=== PATIENT | female | born 1970 | race Caucasian/White ===

== ENCOUNTER 2020-11-20 16:41 | Emergency (ER) | payer OTHER ==
[~2020-11-20] VITALS: Ht 170.2 cm; Wt 81.7 kg
[~2020-11-20 16:41] MED LIST: CALCIUM600 MG PO; HYDROXYZINE HCL25 MG PO; MIRENA1 EACH IY; MULTIVITAMINS1 EAC7 PO
[2020-11-20] MEDS ORDERED: POTASSIUM CHLO20 ME1 PO (18:24)
[2020-11-20] MEDS ORDERED: PRILOSEC2.5 MG PO (18:25)
[2020-11-20] MEDS ORDERED: ISOSORBIDE MONO60 MG PO (18:25)
[2020-11-20] MEDS ORDERED: HYDROCHLOROTHIA50 MG PO (18:25)
[2020-11-20] MEDS ORDERED: MONTELUKAST SOD10 MG PO (18:25)
[2020-11-20] MEDS ORDERED: BAYER CHEWABLE81 MG PO (18:25)
[2020-11-20] MEDS ORDERED: METOPROLOL SUCC25 MG PO (18:26)
== END 2020-11-20 23:00 | disposition home or self-care (01) ==
LOC: ED 16:41
DX: U07.1 COVID-19 (principal); I25.2 Old myocardial infarction; Z87.891 Personal history of nicotine dependence; Z88.0 Allergy status to penicillin; Z91.040 Latex allergy status; Z79.899 Other long term (current) drug therapy; Z79.82 Long term (current) use of aspirin
CPT/HCPCS: 99283-25; C9803; M0243; Q0244; U0003

== ENCOUNTER 2021-10-07 08:20 | Day surgery (SDC) | payer OTHER ==
[~2021-10-07] VITALS: Ht 170.2 cm; Wt 84.1 kg
[~2021-10-07 08:20] MED LIST changes: +BAYER CHEWABLE81 MG PO; +HYDROCHLOROTHIA50 MG PO; +ISOSORBIDE MONO60 MG PO; +METOPROLOL SUCC25 MG PO; +MONTELUKAST SOD10 MG PO; +PEPCID20 MG PO; +POTASSIUM CHLO20 ME1 PO; +PRILOSEC2.5 MG PO
[2021-10-07] MEDS ORDERED: VITAMIN C500 M4 PO (08:44)
[2021-10-07] MEDS ORDERED: PRAVASTATIN SOD20 MG PO (08:44)
[2021-10-07] MEDS ORDERED: VITAMIN D350 MC3 PO (08:45)
[2021-10-07] MEDS ORDERED: VITAMIN B COMP1 EAC1 PO (08:45)
--- NOTE | 2021-10-07 10:34 | NUR ---
10/07/21 1034 [place] 1027 PATIENT ARRIVES TO PACU AWAKE BUT DROWSY. DENIES PAIN OR NAUSEA. PASSING GAS. RESP EVEN AND UNLABORED, NC AT 2 LITERS, TURNED OFF.
--- NOTE | 2021-10-07 13:04 | OR ---
[facility] [address] [place], [place] [address] Signed DATE OF OPERATION: 10/07/2021 SURGEON: Wendy Mckay MD PREOPERATIVE DIAGNOSIS: Episodic diarrhea, prior history of possible diverticulosis. POSTOPERATIVE DIAGNOSIS: Normal-appearing colon. No obvious diverticula currently. PROCEDURE: Total colonoscopy to cecum with biopsy of rectum. ANESTHESIA: Intravenous sedation, propofol infusion; Cristina Cisneros CRNA INDICATIONS: This 51-year-old white woman is a patient of Dr. Pendleton, formally Dr. Medina. She underwent colonoscopy in the past by Dr. Zohaib Orozco with no findings of concern that she knows of, though she was thought to have diverticular changes. She has had no rectal bleeding or constipation but does have diarrhea occasionally. She underwent colonoscopy by Dr. Orozco several years ago. She has no family history of colon cancer that she is aware of. She does have a significant coronary history, having suffered myocardial infarction in 2018, considered related to aortic dissection for which she underwent stent therapy in [place]. She does not currently have angina or exertional chest pain. She is admitted at this time to undergo colonoscopy. She understands the risk of bleeding, infection, and perforation. FINDINGS: The prep was good. Complete colonoscopy was undertaken to the cecum without question. She had no obvious polyps or colitis. I did not see diverticulosis despite prior reported findings of the same. DESCRIPTION OF PROCEDURE: The patient was brought to the endoscopy suite and placed in the lateral decubitus position, given intravenous sedation to the point of slurred speech and nystagmus. Full cardiopulmonary monitoring was undertaken for her propofol infusional sedation approach. Digital rectal examination was normal. An Olympus video colonoscope was passed in the rectum and manipulated throughout the Electronically Signed By: WENDY MCKAY MD 10/07/21 1304 PATIENT NAME: LATANYA WILLIAMSON OPERATIVE REPORT DATE OF : 72 REPORT #: [id number] PHYSICIAN: WENDY MCKAY MD PCP: ROSE ORTIZ PA-C REPORT IS CONFIDENTIAL AND NOT TO BE RELEASED WITHOUT AUTHORIZATION [facility] [address] [place], [place] [address] Signed colon ultimately intubating the cecum itself. The ileocecal valve and appendiceal orifice were normal. Scope was withdrawn and examination throughout showed no sign of polyps or diverticular formation that I could tell and no obvious colitis. Biopsies were obtained of the rectum to assess for occult colitis given episodic diarrhea. The scope was removed and the patient was taken to the recovery room in good condition. CONCLUDING DIAGNOSIS: Normal-appearing colon. PLAN: Recommend repeat colonoscopy in 10 years, sooner if symptoms should warrant. She will return to the ongoing care of Dr. Pendleton. MD WILBERTO Dorantes/MARLEN /[id number] cc: Sathya Pendleton MD Copies: SATHYA PENDLETON MD ~ Electronically Signed By: WENDY MCKAY MD 10/07/21 1304 PATIENT NAME: CLAYLATANYA OPERATIVE REPORT DATE OF : 72 REPORT #: [id number] PHYSICIAN: WENDY MCKAY MD PCP: ROSE ORTIZ PA-C REPORT IS CONFIDENTIAL AND NOT TO BE RELEASED WITHOUT AUTHORIZATION
--- NOTE | 2021-10-07 13:12 | EKG ---
[facility] [address] [facility] [place] [address] Signed Normal sinus rhythm with sinus arrhythmia Low voltage QRS Borderline ECG When compared with ECG of 19-JAN-2018 14:06, Borderline criteria for Inferior infarct are no longer present Confirmed by SATHYA PENDLETON MD ([id number]) on 10/07/2021 1:11:52 PM Electronically Signed By: SATHYA PENDLETON MD 10/07/21 1312 PATIENT NAME: CLAYLATANYA Electrocardiogram DATE OF : 72 PHYSICIAN: SATHYA PENDLETON MD REPORT #: [id number] REPORT IS CONFIDENTIAL AND NOT TO BE RELEASED WITHOUT AUTHORIZATION
--- NOTE | 2021-10-08 14:56 | PATH ---
[facility] [address] [place], [place] [address] Signed SPECIMEN(S): A RECTAL BIOPSY SPECIMEN SOURCE: A. RECTAL BIOPSY CLINICAL HISTORY: Pre: History of diarrhea, history of diverticulosis. Post: Normal colon. Colonoscopy. FINAL PATHOLOGIC DIAGNOSIS: Rectal biopsy: - Hyperplastic polyp (one fragment). JVR:markie:C2NR MICROSCOPIC EXAMINATION: Histologic sections of all submitted blocks are examined by light microscopy. These findings, together with the gross examination, support the pathologic diagnosis. GROSS DESCRIPTION: The specimen, labeled "NN, 1," and designated on the requisition "rectum," is received in formalin and consists of two garza soft tissue fragments that measure 0.2-0.3 cm in greatest dimension. The specimen is entirely submitted in cassette (A1). AT (under the direct supervision of a pathologist) The Gross Description was prepared using a voice recognition system. The report was reviewed for accuracy; however, sound-alike word errors, addition and/or deletions may occur. If there is any question about this report, please contact Client Services. PERFORMING LABORATORY: The technical component was performed by [facility], [address] [place] [address] (CLIA# [id number]). Professional interpretation was performed by [facility], [address] [place] [id number] (CLIA#: [id number]). Diagnostician: Houston Parson MD Pathologist Electronically Signed 10/08/2021 PATIENT NAME: LATANYA WILLIAMSON PATHOLOGY DATE OF : 72 REPORT #: [id number] PHYSICIAN: BREANNE BERMUDEZ PCP: ROSE ORTIZ PA-C REPORT IS CONFIDENTIAL AND NOT TO BE RELEASED WITHOUT AUTHORIZATION [address] [place], [place] [address] Signed Copies: ~ PATIENT NAME: LATANYA WILLIAMSON PATHOLOGY DATE OF : 72 REPORT #: [id number] PHYSICIAN: BREANNE PATHOLOGY PCP: ROSE ORTIZ PA-C REPORT IS CONFIDENTIAL AND NOT TO BE RELEASED WITHOUT AUTHORIZATION
== END 2021-10-07 10:55 | disposition home or self-care (01) ==
LOC: DS 08:20 → OPS 08:20 → DS 09:00 → OPS 10:00 → DS 11:00
PROVIDERS: ATTEND Surgery
PROC: 0DBP8ZX Excision of Rectum, Via Natural or Artificial Opening Endoscopic, Diagnostic (ICD-10-PCS; principal; 2021-10-07 10:00)
DX: K62.1 Rectal polyp (principal); R19.7 Diarrhea, unspecified; K30 Functional dyspepsia; R94.31 Abnormal electrocardiogram [ECG] [EKG]; Z80.0 Family history of malignant neoplasm of digestive organs; Z95.5 Presence of coronary angioplasty implant and graft; Z88.0 Allergy status to penicillin; Z91.040 Latex allergy status
CPT/HCPCS: 00811; 36415; 84703; 93005; 93010; J2001; J2704; J7121

== ENCOUNTER 2022-02-19 10:28 | Emergency (ER) | payer OTHER ==
[~2022-02-19] VITALS: Ht 170.2 cm; Wt 83.9 kg
[~2022-02-19 10:28] MED LIST changes: +PRAVASTATIN SOD20 MG PO; +VITAMIN B COMP1 EAC1 PO; +VITAMIN C500 M4 PO; +VITAMIN D350 MC3 PO
--- NOTE | 2022-02-19 13:17 | EKG ---
[facility] [address] [place] [address] Signed Normal sinus rhythm Normal ECG When compared with ECG of 07-OCT-2021 09:36, No significant change was found Confirmed by Yanet Oh MD () on 02/19/2022 1:17:38 PM Electronically Signed By: YANET OH MD 02/19/22 1317 PATIENT NAME: CLAYLATANYA Electrocardiogram DATE OF : 72 PHYSICIAN: YANET OH MD REPORT #: [id number] REPORT IS CONFIDENTIAL AND NOT TO BE RELEASED WITHOUT AUTHORIZATION
== END 2022-02-19 11:37 | disposition home or self-care (01) ==
LOC: ED 10:28
DX: R07.9 Chest pain, unspecified (principal); M25.512 Pain in left shoulder; I25.2 Old myocardial infarction; Z87.891 Personal history of nicotine dependence; Z88.7 Allergy status to serum and vaccine; Z88.0 Allergy status to penicillin; Z91.040 Latex allergy status; Z79.899 Other long term (current) drug therapy; Z79.82 Long term (current) use of aspirin
CPT/HCPCS: 36415; 80053; 83735; 84484; 85025; 93005; 93010; 99285-25; A9270

== ENCOUNTER 2024-02-10 19:29 | Emergency (ER) | payer OTHER ==
[~2024-02-10] VITALS: Ht 170.2 cm; Wt 85.0 kg
[2024-02-10] MEDS ORDERED: ESOMEPRAZOLE MA40 MG PO (19:41)
[2024-02-10] MEDS ORDERED: EZETIMIBE10 MG PO (19:41)
[2024-02-10] MEDS ORDERED: NITROGLYCERIN 0.4 MG SUBL SL PRN (19:45)
[2024-02-10] MEDS ORDERED: ASPIRIN 81 MG CHEW PO ONE (19:45)
[2024-02-10 19:50] LABS: BASOPHILS 0.6 % (0-2); EOSINOPHILS 1.5 % (0-6); HEMOGLOBIN 14.5 g/dL (12.0-18.0); LYMPHOCYTES 33.7 % (24-44); MCH 30.7 (27-36); MCHC 33.6 g/dl (30-36); MCV 91.2 fl (81-99); MONOCYTES 7.2 % (0-12); PLATELET COUNT 254 K/uL (140-440); RBC 4.72 M/ul (4.3-5.7); RDW 12.9 (10.5-15.0)
[2024-02-10 20:10] LABS: ALBUMIN 3.7 g/dL (3.4-5.0); ALBUMIN/GLOBULIN RATIO 0.95 (1.1-2.4); BILIRUBIN, TOTAL 0.3 ng/dL (0.2-1.0); CALCIUM 9.3 mg/dL (8.5-10.1); MAGNESIUM 1.7 mg/dL (1.8-2.4); PROTEIN, TOTAL 7.6 g/dL (6.4-8.2)
[2024-02-10 20:17] LABS: INR 0.95 (0.80-1.30)
[2024-02-10] MEDS ORDERED: POTASSIUM CHLORIDE 10 MEQ TABCR PO ONE (20:30)
[2024-02-10] MEDS ORDERED: MAGNESIUM OXIDE 400 MG TABLET PO ONE (20:30)
[2024-02-10] MEDS ORDERED: LIDOCAINE & ANTACID 35 ML BTL PO ONE (21:00)
[2024-02-10] MEDS ORDERED: MORPHINE SULFATE 4 MG/ML VIAL IV ONE (21:00)
[2024-02-10] MEDS ORDERED: CARAFATE1 GM PO (21:40)
[2024-02-10] MEDS ORDERED: CYCLOBENZAPRINE10 MG PO (21:40)
[2024-02-10] MEDS ORDERED: CYCLOBENZAPRINE HCL 10 MG HOME.PACK PO ONE (21:45)
[2024-02-10 21:50] VITALS: BP 123/80
--- NOTE | 2024-02-11 21:00 | EKG ---
[facility] [address] [facility] [place] [address] Signed Normal sinus rhythm Low voltage QRS Borderline ECG When compared with ECG of 19-FEB-2022 10:33, No significant change was found Confirmed by Marita Gautam MD ([id number]) on 02/11/2024 9:00:19 PM Electronically Signed By: MARITA GAUTAM DO 02/11/24 2100 PATIENT NAME: LATANYA WILLIAMSON Electrocardiogram DATE OF : 72 PHYSICIAN: MARITA GAUTAM DO REPORT #: [id number] REPORT IS CONFIDENTIAL AND NOT TO BE RELEASED WITHOUT AUTHORIZATION
== END 2024-02-10 21:50 | disposition home or self-care (01) ==
LOC: ED 19:29
PROVIDERS: Family Medicine
DX: R07.89 Other chest pain (principal); I25.2 Old myocardial infarction; Z95.5 Presence of coronary angioplasty implant and graft; Z87.891 Personal history of nicotine dependence; Z88.0 Allergy status to penicillin; Z88.7 Allergy status to serum and vaccine; Z91.040 Latex allergy status; Z79.899 Other long term (current) drug therapy; Z79.82 Long term (current) use of aspirin
CPT/HCPCS: 36415; 71045; 80053; 83735; 84484; 85025; 85379; 85610; 93005; 93010; 96374; 99285-25; A9270; J2270

== ENCOUNTER 2024-05-06 12:56 | Day surgery (SDC) | payer OTHER ==
[~2024-05-06] VITALS: Ht 170.2 cm; Wt 84.1 kg
[~2024-05-06 12:56] MED LIST changes: +CARAFATE1 GM PO; +CYCLOBENZAPRINE10 MG PO; +ESOMEPRAZOLE MA40 MG PO; +EZETIMIBE10 MG PO; +IBLOOD GLUCOSE TEST STRIP 1 EA TEST VI PRN; +LACTATED RINGER'S 1,000 ML IV SCH; +LIDOCAINE HCL 1% 5 ML SDV INJ ONE; +MIDAZOLAM HCL 5 MG/5 ML VIAL IV PRN; +fentaNYL citrate 100 MCG/2 ML VIAL IV PRN
[2024-05-06 13:13] VITALS: BP 123/83
[2024-05-06] MEDS ORDERED: ZYRTEC10 MG PO (13:23)
[2024-05-06] MEDS ORDERED: BEET ROOT500 MG PO (13:24)
[2024-05-06] MEDS ORDERED: CANDICIDAL CAP1 EACH PO (13:25)
[2024-05-06] MEDS ORDERED: CO Q-1010 MG PO (13:25)
[2024-05-06] MEDS ORDERED: GARLIC100 MG PO (13:26)
[2024-05-06] MEDS ORDERED: fentaNYL citrate 100 MCG/2 ML VIAL ONE (13:48)
[2024-05-06] MEDS ORDERED: MIDAZOLAM HCL 5 MG/5 ML VIAL ONE (13:48)
--- NOTE | 2024-05-06 14:54 | NUR ---
05/06/24 1454 Jossy Silva 1428-PT ARRIVES TO PACU VIA STRETCHER, RESTING ON LT SIDE, PT A+OXA. PT DENIES PAIN OR NAUSEA, VSS ON 2L VIA NC. 1430-PT TITRATED TO RA VS REMAIN STABLE. 1435- AT BEDSIDE TO DISCUSS PROCEDURE RESULTS AND PLAN OF CARE W/ PT, ALL QUESTIONS ANSWERED. 1440-PT SITTING UP IN BED SIPPING ON WATER, DENIES PAIN OR NAUSEA, VSS ON RA.
[2024-05-06 15:18] VITALS: BP 116/79
--- NOTE | 2024-05-07 13:16 | OR ---
[facility] [address] [place], [place] [address] Signed DATE OF OPERATION: 05/06/2024 SURGEON: Wendy Mckay MD PREOPERATIVE DIAGNOSIS: Clinical gastroesophageal reflux, an upper GI with hiatal hernia. POSTOPERATIVE DIAGNOSIS: Hiatal hernia, no evidence of active esophagitis; no [place] esophagus. PROCEDURE: Esophagogastroduodenoscopy with biopsy. ANESTHESIA: Intravenous sedation, fentanyl 100 mcg and Versed 4 mg. INDICATIONS: This 53-year-old white woman is a patient of Dr. Maddie Durand. She is here for consideration of upper endoscopy. She underwent colonoscopy in 2021, which was normal. For the past two years, she has had significant gastroesophageal reflux symptoms, particularly at night. She does have spontaneous regurgitation of some degree at least once or twice a month. She underwent an upper GI that confirmed a large hiatal hernia. She has occasional dysphagia, but no hematemesis. She has no family history of esophageal cancer. She is admitted at this time to undergo upper endoscopy to better characterize her reflux issue, understands the risk of bleeding, infection, and perforation. FINDINGS: Esophagus, stomach, and duodenum were normal except for the finding of a moderate-sized hiatal hernia. There was no [place] epithelium or stricture. CLOtest was negative 20 minutes post procedure. There were no other findings of note. DESCRIPTION OF PROCEDURE: The patient was brought to the endoscopy suite and placed in lateral decubitus position, undergoing topical lidocaine hypopharyngeal anesthesia. A bite block was placed. An Olympus video upper endoscope was passed into the hypopharynx. The vocal cords were normal. The scope was advanced and passed into the esophagus and throughout its length it was entirely normal. Scope was advanced to the stomach, which was insufflated with air. Rugal folds were normal. Antral motility was normal. Scope was passed through Electronically Signed By: WENDY MCKAY MD 05/07/24 1316 PATIENT NAME: LATANYA WILLIAMSON OPERATIVE REPORT DATE OF : 72 REPORT #: [id number] PHYSICIAN: WENDY MCKAY MD PCP: MADDIE DURAND MD REPORT IS CONFIDENTIAL AND NOT TO BE RELEASED WITHOUT AUTHORIZATION [facility] [address] [place], [place] [address] Signed the pylorus into the duodenum, which was also normal. Biopsies were taken of the duodenal bulb. The scope was withdrawn, a biopsy was then taken of the antrum for both ARIAS and pathologic testing. Retroflexed view was undertaken showing a moderate to large hiatal hernia. The scope was withdrawn and biopsies then taken of the normal-appearing esophageal mucosa. There was no evidence of [place] epithelium stricture or neoplasm. There were no varices. The scope was withdrawn and midesophageal biopsies were also obtained. Careful withdrawal of scope showed no other findings of note. She was taken to the recovery room in good condition. CONCLUDING DIAGNOSIS: Hiatal hernia, moderate in size, but no evidence of active esophagitis. PLAN: Continued use of PPI medication is safe and effective (see Jim Summers winter issue in 2020). Consideration for operative intervention would be made given her spontaneous regurgitation, though she is well managed regarding symptom control generally speaking at this time with PPI medication. She will return to see me in approximately 4-6 weeks. Wendy Mckay MD JM/MODL /[id number] cc: Dr. Maddie Durand Copies: ~ Electronically Signed By: WENDY MCKAY MD 05/07/24 1316 PATIENT NAME: LATANYA WILLIAMSON OPERATIVE REPORT DATE OF : 72 REPORT #: [id number] PHYSICIAN: WENDY MCKAY MD PCP: MADDIE DURAND MD REPORT IS CONFIDENTIAL AND NOT TO BE RELEASED WITHOUT AUTHORIZATION
--- NOTE | 2024-05-09 14:15 | PATH ---
[facility] [address] [place], [place] [address] Signed SPECIMEN(S): A DUODENAL BULB BIOPSY SPECIMEN(S): B ANTRUM BIOPSY SPECIMEN(S): C DISTAL ESOPHAGEAL BIOPSY SPECIMEN(S): D MID ESOPHAGEAL BIOPSY SPECIMEN SOURCE: A. DUODENAL BULB BIOPSY B. ANTRUM BIOPSY C. DISTAL ESOPHAGEAL BIOPSY D. MID ESOPHAGEAL BIOPSY v CLINICAL HISTORY: GERD with occasional dysphagia, hiatal hernia FINAL PATHOLOGIC DIAGNOSIS: A. Duodenum, bulb, biopsy: - Duodenal mucosa with no significant pathologic changes B. Stomach, biopsy: - Gastric antral and oxyntic mucosa with no significant pathologic changes - Negative for Helicobacter pylori with HE stains C. Esophagus, distal, biopsy: - Esophageal squamous mucosa with no significant pathologic changes D. Esophagus, mid, biopsy: - Esophageal squamous mucosa with no significant pathologic changes BRP MICROSCOPIC EXAMINATION: Histologic sections of all submitted blocks are examined by light microscopy. These findings, together with the gross examination, support the pathologic diagnosis. GROSS DESCRIPTION: A. The specimen, labeled and designated "Angelito, duodenal bulb biopsy," is received in formalin and consists of two garza soft tissue fragments, ranging from 0.2-0.4 cm. Entirely submitted in (A1). B. The specimen, labeled and designated "Angelito, antrum biopsy," is received in formalin and consists of two garza soft tissue fragments, ranging from 0.3-0.4 cm. Entirely submitted in (B1). C. The specimen, labeled and designated "Angelito, distal esophageal biopsy," is received in formalin and consists of two garza soft tissue fragments, ranging PATIENT NAME: LATANYA EATON PATHOLOGY DATE OF : 72 REPORT #: [id number] PHYSICIAN: BREANNE BERMUDEZ PCP: ANTIONE DURAND MD REPORT IS CONFIDENTIAL AND NOT TO BE RELEASED WITHOUT AUTHORIZATION [facility] [address] [facility] [place] [address] Signed from 0.1-0.4 cm. Entirely submitted in (C1). D. The specimen, labeled and designated "janey Eaton esophageal biopsy," is received in formalin and consists of three garza soft tissue fragments, ranging from 0.2-0.3 cm. Entirely submitted in (D1). VB (under the direct supervision of a pathologist) The Gross Description was prepared using a voice recognition system. The report was reviewed for accuracy; however, sound-alike word errors, addition and/or deletions may occur. If there is any question about this report, please contact Client Services. ADDITIONAL NOTES: Immunohistochemical and/or in situ hybridization studies if performed in this case included appropriate positive controls that reacted as expected. This test was developed and its performance characteristics determined by [facility]. It has not been cleared or approved by the U.S. Food and Drug Administration. The FDA has determined that such clearance or approval is not necessary. This test is used for clinical purposes. It should not be regarded as investigational or for research. [facility] is certified under the Clinical Laboratory Improvement Amendments of 1988 (CLIA) as qualified to perform high complexity clinical laboratory testing. PERFORMING LABORATORY: Technical component was performed by [facility], [address] [place] [address] (CLIA# [id number]). Professional interpretation was performed by [facility], [address] [place] [address] (CLIA#: [id number]). Diagnostician: Humberto Smith MD Pathologist Electronically Signed 05/09/2024 Copies: ~ PATIENT NAME: LATANYA EATON PATHOLOGY DATE OF : 72 REPORT #: [id number] PHYSICIAN: BREANNE PATHOLOGY PCP: ANTIONE DURAND MD REPORT IS CONFIDENTIAL AND NOT TO BE RELEASED WITHOUT AUTHORIZATION
== END 2024-05-06 15:08 | disposition home or self-care (01) ==
LOC: DS 12:56
PROVIDERS: ATTEND Surgery
PROC: 0DB78ZX Excision of Stomach, Pylorus, Via Natural or Artificial Opening Endoscopic, Diagnostic (ICD-10-PCS; 2024-05-06)
PROC: 0DB58ZX Excision of Esophagus, Via Natural or Artificial Opening Endoscopic, Diagnostic (ICD-10-PCS; 2024-05-06)
PROC: 0DB98ZX Excision of Duodenum, Via Natural or Artificial Opening Endoscopic, Diagnostic (ICD-10-PCS; principal; 2024-05-06 13:45)
DX: K21.9 Gastro-esophageal reflux disease without esophagitis (principal); K44.9 Diaphragmatic hernia without obstruction or gangrene; I25.2 Old myocardial infarction; Z80.0 Family history of malignant neoplasm of digestive organs; Z79.82 Long term (current) use of aspirin; Z79.899 Other long term (current) drug therapy; Z88.0 Allergy status to penicillin; Z91.040 Latex allergy status; Z95.5 Presence of coronary angioplasty implant and graft
CPT/HCPCS: 99153; G0500; J2250; J3010; J7121

== ENCOUNTER 2024-08-15 10:56 | Day surgery (SDC) | payer OTHER ==
[2024-08-12 14:47] VITALS: BP 129/84
[~2024-08-15] VITALS: Ht 170.2 cm; Wt 86.8 kg
[~2024-08-15 10:56] MED LIST changes: +BEET ROOT500 MG PO; +CANDICIDAL CAP1 EACH PO; +CINNAMON500 MG PO; +CO Q-1010 MG PO; +GARLIC100 MG PO; -MIDAZOLAM HCL 5 MG/5 ML VIAL IV PRN; +ZYRTEC10 MG PO; -fentaNYL citrate 100 MCG/2 ML VIAL IV PRN
[2024-08-15 11:29] VITALS: BP 117/74
[2024-08-15] MEDS ORDERED: DOTTI1 EAC2 TD (11:33)
[2024-08-15] MEDS ORDERED: PROGESTERONE100 MG PO (11:33)
[2024-08-15] MEDS ORDERED: MOUNJARO2.5 MG/0.5 SUB-Q (11:34)
[2024-08-15] MEDS ORDERED: L-ARGININE1000 MG PO (11:34)
[2024-08-15] MEDS ORDERED: propofoL 200 MG/20 ML VIAL ONE ×2 (11:39→12:34)
[2024-08-15] MEDS ORDERED: KETOROLAC TROMETHAMINE 30 MG/ML VIAL ONE (11:39)
[2024-08-15] MEDS ORDERED: ACETAMINOPHEN 1,000 MG/100 ML VIAL ONE (11:39)
[2024-08-15] MEDS ORDERED: LIDOCAINE HCL 2% 5 ML SDV ONE (11:39)
[2024-08-15] MEDS ORDERED: fentaNYL citrate 100 MCG/2 ML VIAL ONE (11:39)
[2024-08-15] MEDS ORDERED: ondansetron HCL 4 MG/2 ML VIAL ONE (11:39)
[2024-08-15] MEDS ORDERED: MIDAZOLAM HCL 2 MG/2 ML VIAL ONE (11:56)
[2024-08-15] MEDS ORDERED: IBLOOD GLUCOSE TEST STRIP 1 EA TEST VI PRN (12:30)
[2024-08-15] MEDS ORDERED: PROCHLORPERAZINE EDISYLATE 10 MG/2 ML VIAL IV PRN (12:30)
[2024-08-15] MEDS ORDERED: fentaNYL citrate 50 MCG/ML SDV IV PRN (12:30)
[2024-08-15] MEDS ORDERED: NALOXONE HCL 0.4 MG SYR IV PRN ×2 (12:30→13:00)
[2024-08-15] MEDS ORDERED: HYDROmorphone HCL 1 MG/ML SYR IV PRN (12:30)
[2024-08-15] MEDS ORDERED: ondansetron HCL 4 MG/2 ML VIAL IV PRN ×2 (12:30→13:00)
[2024-08-15] MEDS ORDERED: SIMETHICONE 80 MG CHEW PO PRN (13:00)
[2024-08-15] MEDS ORDERED: SIMETHICONE 80 MG CHEW PO SCH (13:00)
[2024-08-15] MEDS ORDERED: FAMOTIDINE 20 MG/ 2 ML VIAL IV PRN (13:00)
[2024-08-15] MEDS ORDERED: OXYCODONE/APAP 5/325 TAB PO PRN (13:00)
[2024-08-15] MEDS ORDERED: MAGNESIUM HYDROXIDE/AL HYDROX 30 ML CUP PO PRN (13:00)
[2024-08-15] MEDS ORDERED: METOCLOPRAMIDE HCL 10 MG/2 ML SDV IV PRN (13:00)
[2024-08-15 14:12] VITALS: BP 101/67
--- NOTE | 2024-08-15 14:56 | NUR ---
08/15/24 Brett6 Jody Geigerah Perez 1248- PT PRESENTS TO PACU, SEMI GÓMEZ POSITION. OPA IN PLACE, PT REACTIVE TO STIMULUS, AND OPENS MOUTH TO REMOVE OPA. PT MUMBLING WORDS, BREATHING EVEN AND NON LABORED. LR INFUSING TO RH IV. ABD SOFT, NON DISTENDED. GIOVANNI PAD IN PLACE, NO VAGINAL BLEEDING. ALL MONITORS IN PLACE. 1255- PT DROWSY AND ANSWERING QUESTIONS. REPORTS 2/10 CRAMPING PAIN BUT TOLERABLE. MOVED TO ROOM AIR. 1305- PT DROWSY BUT TALKING TO STAFF. NO SIGNS OF DISTRESS. NO CHANGE IN PAIN, DENIES NAUSEA. 1310- PT SAT UP IN BED, ICE WATER PROVIDED, TOLERATING WELL. 1316- PT UP TO SIDE OF BED, NO DIZZINESS OR NAUSEA. PT ALERT, TO GET DRESSED. DAUGHTER CALLED FOR RIDE HOME. 1330- PT VERBALIZED UNDERSTANDING OF INSTRUCTIONS. SALINE LOCK REMOVED, TIP INTACT, DRESSING APPLIED. NO SIGNS OF DISTRESS. SMALL AMOUNT OF VAGINAL SPOTTING. TRANSFERRED TO WHEELCHAIR WITH STEADY GAIT. TAKEN TO FAMILY CAR WITH ALL BELONGINGS.
[2024-08-15] MEDS ORDERED: SENNOSIDES/DOCUSATE 1 EA TAB PO SCH (21:00)
--- NOTE | 2024-08-15 22:50 | OR ---
[address] [address] Signed DATE OF OPERATION: 08/15/2024 SURGEON: Mumtaz Montgomery DO PREOPERATIVE DIAGNOSES: 1. Postmenopausal bleeding. 2. Thickened endometrium. 3. Endometrial polyp. POSTOPERATIVE DIAGNOSES: 1. Postmenopausal bleeding. 2. Thickened endometrium. 3. Endometrial polyp. PROCEDURES PERFORMED: Hysteroscopy, dilation and curettage with polypectomy. ANESTHESIA: MAC. ESTIMATED BLOOD LOSS: 5 mL. FLUID: Deficit 260 mL. SPECIMENS: Endometrial curettings and polyp. DRAINS: None. FINDINGS: Normal external genitalia with normal clitoris, urethral meatus, bilateral [place]'s, Bartholin's glands. Normal perineum and anus. Normal vagina discharge in cervix with good apical support. Cervix dilated easily without stenosis. On hysteroscopy, normal appearance of the endometrial cavity with possibly some thickening of the endometrium. A small polyp was noted in the right cornu. COMPLICATIONS: Electronically Signed By: MUMTAZ MONTGOMERY DO (JD) 08/15/24 8694 PATIENT NAME: LATANYA EATON OPERATIVE REPORT DATE OF : 72 REPORT #: [id number] PHYSICIAN: MUMTAZ MONTGOMERY DO (JD) PCP: ANTIONE DURAND MD REPORT IS CONFIDENTIAL AND NOT TO BE RELEASED WITHOUT AUTHORIZATION [address] [address] Signed None. INDICATIONS: Ms. Eaton is a very pleasant 54-year-old female with postmenopausal bleeding and thickening of the endometrium noted on ultrasound. Reviewed options for sampling and further evaluation of the endometrium and patient desired hysteroscopy, D and C. Risks, benefits, and alternatives were discussed in detail with the patient. The patient understands and wished to proceed with the procedure. DESCRIPTION OF PROCEDURE: The patient was taken the OR. A time-out was performed to confirm correct patient, correct procedure. MAC anesthesia was adequately established. The patient was prepped and draped in the dorsal lithotomy position with feet in Yellofin stirrups. ICPs were on running and no preoperative antibiotics or heparin was indicated. A weighted speculum was placed in vagina and the anterior lip of the cervix was grasped with an Allis clamp. The cervix was gently dilated using Hegar dilators. Operative hysteroscope was then placed in cervical os and advanced under direct visualization in the uterine cavity. Somewhat thickened endometrium was noted with a very small polyp noted in the right cornu. MyoSure device was selected and passed through the operative channel of the hysteroscope and polypectomy and global curettage was performed without difficulty. The hysteroscope was withdrawn. Allis clamp was removed and no bleeding was noted. Fluid deficit was 260 mL. The patient was then taken to the PACU in good and stable condition. Sponge, needle, and instrument counts were correct x2 at the end of the procedure. DO MALINA Farooq/SHERONL /[id number] Copies: ~ Electronically Signed By: MUMTAZ MONTGOMERY DO (JD) 08/15/24 1883 PATIENT NAME: CLAYLATANYA OPERATIVE REPORT DATE OF : 72 REPORT #: [id number] PHYSICIAN: MUMTAZ MONTGOMERY (JAIDEN) DO PCP: ANTIONE DURAND MD REPORT IS CONFIDENTIAL AND NOT TO BE RELEASED WITHOUT AUTHORIZATION
--- NOTE | 2024-08-19 16:15 | PATH ---
[facility] [address] [facility] [place] [address] Signed SPECIMEN(S): A ENDOMETRIAL CURETTINGS AND POLYP SPECIMEN SOURCE: A. ENDOMETRIAL CURETTINGS AND POLYP CLINICAL HISTORY: Postmenopausal bleeding/endometrial thickening FINAL PATHOLOGIC DIAGNOSIS: Endometrial curettings and polyp: - Weakly proliferative endometrium, negative for hyperplasia or atypia. - Benign myometrial fragments. JVR:cori MICROSCOPIC EXAMINATION: Histologic sections of all submitted blocks are examined by light microscopy. These findings, together with the gross examination, support the pathologic diagnosis. GROSS DESCRIPTION: The specimen, labeled and designated "Suhail Eaton, endometrial curettings and polyps," is received in formalin and consists of multiple fragments of soft garza-red tissue measuring 2.7 x 1.6 x 0.4 cm in aggregate. Entirely submitted in (A1). AB (under the direct supervision of a pathologist) The Gross Description was prepared using a voice recognition system. The report was reviewed for accuracy; however, sound-alike word errors, addition and/or deletions may occur. If there is any question about this report, please contact Client Services. PERFORMING LABORATORY: Technical component was performed by [facility], [address] [place] [id number] (CLIA# [id number]). Professional interpretation was performed by [facility], [address] [place] [phone] (CLIA#: [id number]). Diagnostician: Houston Parson MD Pathologist Electronically Signed 08/19/2024 PATIENT NAME: LATANYA EATON PATHOLOGY DATE OF : 72 REPORT #: [id number] PHYSICIAN: BREANNE PATHOLOGY PCP: ANTIONE DURAND MD REPORT IS CONFIDENTIAL AND NOT TO BE RELEASED WITHOUT AUTHORIZATION [address] [place], [place] [address] Signed Copies: ~ PATIENT NAME: LATANYA EATON PATHOLOGY DATE OF : 72 REPORT #: [id number] PHYSICIAN: BREANNE PATHOLOGY PCP: ANTIONE DURAND MD REPORT IS CONFIDENTIAL AND NOT TO BE RELEASED WITHOUT AUTHORIZATION
== END 2024-08-15 13:30 | disposition home or self-care (01) ==
LOC: DS 10:56 → OPS 10:56
PROVIDERS: ATTEND Obstetrics & Gynecology
PROC: 0UB98ZZ Excision of Uterus, Via Natural or Artificial Opening Endoscopic (ICD-10-PCS; principal; 2024-08-15 12:00)
DX: N84.0 Polyp of corpus uteri (principal); N95.0 Postmenopausal bleeding; R93.89 Abnormal findings on diagnostic imaging of other specified body structures; Z79.899 Other long term (current) drug therapy; Z91.040 Latex allergy status; Z88.0 Allergy status to penicillin; Z88.8 Allergy status to other drugs, medicaments and biological substances
CPT/HCPCS: 00952; J0131; J1885; J2003; J2250; J2405; J2704; J3010; J7121